=== PATIENT | female | born 1980 | race Caucasian/White ===

== ENCOUNTER 2019-05-12 08:35 | Observation (INO) | payer OTHER ==
[2019-05-12 08:33] LABS: Urine Appearance CLEAR; Urine Blood NEGATIVE (NEG); Urine Color DK YELLOW; Urine Glucose NEGATIVE (NEG); Urine Protein NEGATIVE (NEG); Urine Specific Gravity >=1.030 (1.005-1.030); Urine Urobilinogen 0.2 mg/dL (0.2-1.0); Urine pH 5.5 (5.0-7.0)
[2019-05-12 08:35] LABS: Absolute Lymphocytes (CBC) 1.9 K/uL (0.7-4.9); Hematocrit 39.4 % (36.0-45.0); Lymphocytes % 32.2 % (15.3-44.8); MPV 7.7 fL (7.6-11.3); RBC Red Blood Cell Count 4.18 M/uL (3.86-4.86)
[2019-05-12 08:39] LABS: Protime INR 1.02
[2019-05-12] MEDS ORDERED: dexAMETHasone 10 MG/ML VIAL ONE (08:40)
[2019-05-12] MEDS ORDERED: MIDAZOLAM HCL 2 MG/2 ML INJ ONE (08:40)
[2019-05-12] MEDS ORDERED: PROPOFOL 200 MG/20 ML VIAL IV ONE (08:40)
[2019-05-12] MEDS ORDERED: LIDOCAINE 1% MPF 5 ML VIAL ONE (08:40)
[2019-05-12] MEDS ORDERED: FENTANYL CITR 250 MCG/5 ML ONE (08:40)
[2019-05-12] MEDS ORDERED: VECURONIUM 10 MG/VIAL IV ONE (08:41)
[2019-05-12] MEDS ORDERED: NS 0.9% VIAL 10 ML ONE (08:41)
[2019-05-12] MEDS ORDERED: ONDANSETRON 4 MG/2 ML VIAL ONE ×2 (08:41→11:58)
[2019-05-12 08:51] LABS: Urine Bilirubin 1+ (NEG); Urine Microscopic Reflex NO UMIC
[2019-05-12] MEDS ORDERED: Ringers Lactate 1,000 ML IV ONE ×2 (08:52→12:51)
[2019-05-12] MEDS ORDERED: NA CIT/CITRIC AC 30 ML ORAL UDC ONE (08:52)
[2019-05-12] MEDS ORDERED: SCOPOLAMINE HYDROBROMIDE PATCH TD ONE (08:52)
[2019-05-12] MEDS ORDERED: CEFAZOLIN/SWI 1gm 1 GM/10 ML SYR ONE (08:52)
--- NOTE | 2019-05-12 09:44 | RAD REPORT ---
EXAM DESCRIPTION: Pablo Sanchez (2 Views)05/12/2019 8:41 am CLINICAL HISTORY: Preop for abdominal surgery COMPARISON: None FINDINGS: The lungs appear clear of acute infiltrate. The heart is normal size IMPRESSION: No acute abnormalities displayed
--- NOTE | 2019-05-12 11:01 | EKG ---
Test Date: 2019-05-12 Test Time: 08:20:58 [employer]er: SHELLY MEASUREMENT RESULTS: Intervals: Rate: 67 IL: 158 QRSD: 94 QT: 412 QTc: 435 [place]: P: 46 IL: 158 QRS: 13 T: 28 INTERPRETIVE STATEMENTS: Normal sinus rhythm Normal ECG No previous ECG available for comparison Electronically Signed On 05-12-19 11:00:34 CDT by Hao Whyte
[2019-05-12] MEDS ORDERED: NEOSTIGMINE 1 MG/ML -10 ML VIAL ONE (11:58)
[2019-05-12] MEDS ORDERED: KETOROLAC 30 MG/ML INJ ONE (11:58)
[2019-05-12] MEDS ORDERED: GLYCOPYRROLATE 0.2 MG/ML SYR ONE (11:58)
[2019-05-12] MEDS ORDERED: Mastisol Adhesive Liq ONE (12:09)
[2019-05-12] MEDS ORDERED: MEPERIDINE HCL 25 MG/0.5 ML ONE (12:26)
[2019-05-12] MEDS: FENTANYL CITR 100 MCG/2 ML ONE ×5 (12:37→13:08)
[2019-05-12] MEDS ORDERED: Ringers Lactate 0 ML IV ONE (12:48)
[2019-05-12] MEDS ORDERED: PROMETHAZINE 25 MG/ML VIAL ONE (13:13)
[2019-05-12] MEDS: MEPERIDINE HCL 50 MG/ML ONE ×2 (13:15→13:40)
[2019-05-12] MEDS ORDERED: MEPERIDINE HCL 50 MG/ML IM PRN ×2 (14:03→14:19)
[2019-05-12] MEDS: D5LR 1,000 ML IV SCH ×2 (14:40→23:10)
[2019-05-12] MEDS ORDERED: CEFAZOLIN SODIUM IV SCH ×2 (15:00→16:00)
[2019-05-12 16:10] VITALS: BMI 30.2
[2019-05-12] MEDS ORDERED: ENOXAPARIN 40 MG/0.4 ML SQ SCH (16:40)
[2019-05-12] MEDS: MEPERIDINE HCL 25 MG/0.5 ML IV PRN ×2 (17:24→23:04)
[2019-05-12] MEDS: CEFAZOLIN 500 MG in NA CHLORIDE 0.9% 50 ML IV SCH ×2 (17:24→23:14)
[2019-05-12] MEDS: MEPERIDINE HCL 50 MG/ML IM PRN (19:53)
[2019-05-12 22:50] VITALS: O2SAT 97
[2019-05-13] MEDS: MEPERIDINE HCL 50 MG/ML IM PRN ×2 (01:31→08:27)
[2019-05-13] MEDS: MEPERIDINE HCL 25 MG/0.5 ML IV PRN ×2 (05:59→09:42)
[2019-05-13] MEDS: CEFAZOLIN 500 MG in NA CHLORIDE 0.9% 50 ML IV SCH (05:59)
[2019-05-13] MEDS: D5LR 1,000 ML IV SCH (05:59)
[2019-05-13] MEDS ORDERED: ENOXAPARIN 80 MG/0.8 ML SQ SCH (09:00)
[2019-05-13 09:39] VITALS: BP 106/64; TEMP 98.5
--- NOTE | 2019-05-13 22:40 | DS ---
Date of Discharge: 05/13/2019 History Of Present Illness: A 38-year-old, white female who is status post a breast lift requests a tummy tuck. She has previous surgery of thymectomy with scar on her chest as well as the breast lift. She has history of pulmonary embolism. She does not smoke. Does not drink. Physical Examination: A scar over sternal region that is transversally oriented and she also has excess hanging skin of the abdominal wall. She is 5' 2 " and 106 pounds. 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 Plan: Abdominoplasty with mesh reinforcement and scar revision. She underwent surgery and is unremarkable. Blood loss was approximately 100 cc. Following day, she is discharged on Eliquis. We gave her Lovenox overnight and to go home on Eliquis. She is going to return office following Wednesday, 2 days from now. Prescriptions were provided. Condition is described good. CHAKA Voice ID: [id number] Report ID: [id number] MATA
--- NOTE | 2019-05-15 08:48 | OP ---
Surgeon: Pierre Marroquin MD [employer]: [employer]. Preoperative Diagnosis: Abdominal lipodystrophy, sternal scar. Postoperative Diagnosis: Abdominal lipodystrophy, sternal scar. Procedure Performed: Abdominoplasty with mesh reinforcement with scar revision. Anesthesia: General. Procedure In Detail: After satisfactory induction of general anesthesia, the chest and abdomen prepped with DuraPrep. Dry sterile drapes placed in the usual manner. A transverse incision was made cephalad to the pubic area extending toward the flank and then electrocautery was dissected down to fascia. The flap was elevated, split around the umbilicus and then dissected to the costal margin. After this was done, the patient then underwent bilateral lateral plication. #1 Prolene was used to pull 7 cm laterally in each flank . Then midline sutures were placed using 0 Prolene [id number] interrupted. After all those were placed, they were then tied except at the umbilicus. Then a piece of mesh was cut to appropriate size and then placed with running sutures and #1 Prolene from anterior iliac spine to pubic tubercle to anterior superior spine and then from supraumbilical down to anterior iliac spine bilateral. Incision was made in the mesh for the umbilicus hernia through and then the patient had a 10 CELSO drains brought out laterally sewn in place with 2-0 silk, and quilting stitches were placed with 3-0 Vicryl after excess skin was cut off and site for new umbilicus marked. 3-0 Prolene sutures placed at the umbulicus . quilting stitches done, 3-0 Vicryl was done in subcu layer and then 3-0 PDS running subcuticular from lateral to medial tied in the vertical meridian of the abdomen. Attention was turned to the scar on the chest wall, she had previous thymectomy had a transverse orientation and a z plasty incision was performed This was done with a 15 blade approximately 2 cm . Dressing was tincture of benzoin, Steri-Strips were applied over the 4x4s and tape. The patient tolerated the procedure well. The amount removed from the right abdomen was 684, left abdomen was 726. Beginning pressures and volumes were approximately 500 volume, pressure was 22. GH/MODL Voice ID: [id number] Report ID: [id number] MTDD
--- OUTSIDE RECORDS SUMMARY | 2019-05-21 19:15 | XMS REPORT ---
:1980 Author Organization [facility] Address [address] [place] [address] Dr. Goodrich[address] [place] [address] Care Team Providers Name Role Phone Unavailable Unavailable Unavailable Payers Payer Name Policy Type Policy Number Effective Date Expiration Date Problems This patient has no known problems. Allergies, Adverse Reactions, Alerts This patient has no known allergies or adverse reactions. Medications This patient has no known medications. Encounters Start End Encounter Admission Attending Care Care Encounter Date/Time Date/Time Type Type Clinicians Facility Department ID 2019-05-04 2019-05-04 Emergency E [facility] [id number] 10:05:00 10:05:00 Results Test Description Test Time Test Comments Text Results Atomic Results Result Comments CYTO 2019-04-21 RUN DATE: 16:18:00 [facility] RUN TIME: 1618 Specimen Inquiry RUN USER: INTERFACE PATIENT: MAYUR CAST LOC: [facility] #: [id number] AGE/SX: 38/F ROOM: RE04/20/19[facility] DR : Suzanna Zheng MD : 79 BED: DIS: STATUS: DEP CLI TLOC: SPEC #: [id number] RECD: 04/21/19 STATUS: ANNA RE # : [id number] YOLETTE: 04/20/[address] [facility] [address]: Suzanna Zheng MD ENTERED: 04/21/19 SP TYPE: CYTO OTHR DR: Mario Mackey MD ORDERED: CYFWBSMI TISSUES: FINE NEEDLE ASPIRATE (FLUID) - LEFT BREAST 7 O'CLOCK MASS FNA 2 SLIDES COMMENT Follow-up studies are recommended if clinical suspicion of lesion persists. FINAL DIAGNOSIS LEFT BREAST, 7:00 MASS, FINE-NEEDLE ASPIRATION (FIXED SMEARS): - MOSTLY ADIPOCYTES, SCATTERED HISTIOCYTES, PROTEINACEOUS DEBRIS, AND REFRACTILE MATERIAL SUGGESTIVE OF CALCIFICATIONS - NO MALIGNANT CELLS IDENTIFIED - NO DEFINITIVE DUCTAL EPITHELIUM PRESENT (SEE COMMENT) GROSS DESCRIPTION Received and labeled "Left breast 7 o'clock mass FNA" are 2 fixed smears. The slides are stained with Papanicolaou stain for microscopic examination. Signed SIGNATURE ON FILE Eduardo Cabral 05/30 8311 END OF REPORT
== END 2019-05-13 09:59 | disposition home or self-care (01) ==
LOC: OR 08:35 → 2ND 12:38
PROVIDERS: ADMIT Specialist; ATTEND Specialist
PROC: 0JB80ZZ Excision of Abdomen Subcutaneous Tissue and Fascia, Open Approach (ICD-10-PCS; principal; 2019-05-12 09:00)
DX: E88.1 Lipodystrophy, not elsewhere classified (principal); L90.5 Scar conditions and fibrosis of skin
CPT/HCPCS: 15830; 15847; 93005; 85025; 36415; 85610; 85730; 81003; 71046; J2704; J2710; J2550; J1650; J2250; J3010 ×3; J1100; J2175 ×9; J0690 ×3; J7120; J2405 ×2; G0379; G0378 ×3